=== PATIENT | male | born 2000 | race Hispanic/Latino ===

== ENCOUNTER 2018-04-05 12:54 | Emergency (ER) | payer MEDICAID ==
[2018-04-05] MEDS ORDERED: NAPROXEN 500 MG TABLET ONE (14:38)
== END 2018-04-05 15:31 | disposition home or self-care (01) ==
LOC: EDH 12:54
DX: S70.12XA Contusion of left thigh, initial encounter (principal); S80.02XA Contusion of left knee, initial encounter; Z98.890 Other specified postprocedural states; W18.39XA Other fall on same level, initial encounter; Y93.89 Activity, other specified; Y92.098 Other place in other non-institutional residence as the place of occurrence of the external cause; Y99.8 Other external cause status
CPT/HCPCS: 73552; 73562